=== PATIENT | female | born 2000 | race Caucasian/White ===

== ENCOUNTER 2024-08-13 10:04 | Emergency (ER) | payer OTHER ==
[~2024-08-13] VITALS: Ht 165.1 cm; Wt 69.5 kg
[2024-08-13] MEDS: methocarbamoL 500 MG TAB PO ONE (11:49)
[2024-08-13] MEDS: KETOROLAC 60MG 2ML VIAL IM ONE (11:49)
[2024-08-13 12:40] VITALS: O2SAT 99
[2024-08-13] MEDS ORDERED: METH-1164 PO (13:23)
[2024-08-13 13:37] VITALS: BP 131/82; TEMP 98.7
== END 2024-08-13 13:40 | disposition home or self-care (01) ==
LOC: M ED 10:04
DX: S13.4XXA Sprain of ligaments of cervical spine, initial encounter (principal); Y92.9 Unspecified place or not applicable; Y93.9 Activity, unspecified; Y99.9 Unspecified external cause status; V49.40XA Driver injured in collision with unspecified motor vehicles in traffic accident, initial encounter; F17.290 Nicotine dependence, other tobacco product, uncomplicated; F10.10 Alcohol abuse, uncomplicated; Z88.0 Allergy status to penicillin; Z88.1 Allergy status to other antibiotic agents; Z79.899 Other long term (current) drug therapy
CPT/HCPCS: 96372; 99283; J1885